=== PATIENT | female | born 1980 | race Caucasian/White ===

== ENCOUNTER 2016-03-18 17:39 | Emergency (ER) | payer MEDICAID | END 2016-03-18 19:02 | disposition home or self-care (01) | DX: J06.9 Acute upper respiratory infection, unspecified (principal); B97.89 Other viral agents as the cause of diseases classified elsewhere ==

== ENCOUNTER 2016-03-28 17:16 | Emergency (ER) | payer MEDICAID | END 2016-03-28 20:23 | disposition home or self-care (01) | DX: S83.91XA Sprain of unspecified site of right knee, initial encounter (principal); X50.9XXA Other and unspecified overexertion or strenuous movements or postures, initial encounter; Y93.F9 Activity, other caregiving; R03.0 Elevated blood-pressure reading, without diagnosis of hypertension ==

== ENCOUNTER 2016-04-07 16:15 | Emergency (ER) | payer MEDICAID | END 2016-04-07 17:49 | disposition home or self-care (01) | DX: N93.8 Other specified abnormal uterine and vaginal bleeding (principal); N94.6 Dysmenorrhea, unspecified; J45.909 Unspecified asthma, uncomplicated ==

== ENCOUNTER 2016-05-09 19:06 | Emergency (ER) | payer MEDICAID | END 2016-05-09 22:18 | disposition home or self-care (01) | DX: M25.561 Pain in right knee (principal); W10.9XXA Fall (on) (from) unspecified stairs and steps, initial encounter; R03.0 Elevated blood-pressure reading, without diagnosis of hypertension ==

== ENCOUNTER 2016-07-16 21:49 | Emergency (ER) | payer OTHER, MEDICAID ==
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
[2016-07-16 23:13] VITALS: BP 138/86
== END 2016-07-16 23:29 | disposition home or self-care (01) ==
LOC: ED 21:49
DX: S50.812A Abrasion of left forearm, initial encounter (principal); S50.811A Abrasion of right forearm, initial encounter; W51.XXXA Accidental striking against or bumped into by another person, initial encounter; Y93.F9 Activity, other caregiving; Y92.009 Unspecified place in unspecified non-institutional (private) residence as the place of occurrence of the external cause; Y99.0 Civilian activity done for income or pay; J45.909 Unspecified asthma, uncomplicated
CPT/HCPCS: 1040M; 99282

== ENCOUNTER 2016-12-07 21:28 | Emergency (ER) | payer MEDICAID ==
[2016-12-07 21:40] VITALS: BP 132/94
== END 2016-12-07 22:45 | disposition left against medical advice (07) ==
LOC: ED 21:28
DX: Z53.21 Procedure and treatment not carried out due to patient leaving prior to being seen by health care provider (principal)

== ENCOUNTER 2017-03-02 09:47 | Emergency (ER) | payer OTHER, MEDICAID ==
[2017-03-02 09:53] VITALS: BP 134/88
[2017-03-02] MEDS ORDERED: TETANUS/DIPHTHERIA/PERTUSSIS 0.5 ML SYRINGE IM ONE (10:34)
[2017-03-02] MEDS ORDERED: AMOX/CLAV 875 MG/125 MG TABLET PO STA (10:38)
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
== END 2017-03-02 10:54 | disposition home or self-care (01) ==
LOC: ED 09:47
DX: S30.811A Abrasion of abdominal wall, initial encounter (principal); S40.021A Contusion of right upper arm, initial encounter; W50.3XXA Accidental bite by another person, initial encounter; Y92.219 Unspecified school as the place of occurrence of the external cause; Y99.0 Civilian activity done for income or pay; Z23 Encounter for immunization
CPT/HCPCS: 1040M; 90471; 90715; 99283; A9270

== ENCOUNTER 2017-03-02 16:06 | Outpatient (CLI) | payer MEDICAID | END 2017-03-02 16:07 | disposition EMS.NT | LOC: EMS 16:06 | PROVIDERS: ATTEND Surgery | DX: M25.512 Pain in left shoulder (principal); V73.6XXA Passenger on bus injured in collision with car, pick-up truck or van in traffic accident, initial encounter; Y92.414 Local residential or business street as the place of occurrence of the external cause ==

== ENCOUNTER 2017-03-02 17:48 | Emergency (ER) | payer OTHER, MEDICAID ==
[2017-03-02 18:13] VITALS: BP 145/106
[2017-03-02] MEDS ORDERED: KETOROLAC 60 MG/2 ML VIAL IM STA (19:35)
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
== END 2017-03-02 19:52 | disposition home or self-care (01) ==
LOC: ED 17:48
DX: S39.012A Strain of muscle, fascia and tendon of lower back, initial encounter (principal); V73.6XXA Passenger on bus injured in collision with car, pick-up truck or van in traffic accident, initial encounter
CPT/HCPCS: 1040M; 96372; 99283; 90471

== ENCOUNTER 2017-04-12 18:37 | Emergency (ER) | payer MEDICAID ==
--- NOTE | 2017-04-12 20:46 | ED Physician Documentation ---
PD HPI URI - Stated complaint Stated Complaint: COUGH/TIGHT CHEST - Chief complaint Chief Complaint: Resp - History obtained from History obtained from: Patient - History of Present Illness Timing duration: Days Timing details: Gradual onset, Still present Associated symptoms: Fever, Chills, Dry cough, Chest pain Improves by: Rest Worsened by: Activity Similar symptoms before: No diagnosis Review of Systems Constitutional: reports: Fever, Myalgias PD PAST MEDICAL HISTORY - Past Medical History Past Medical History: Yes Cardiovascular: None Respiratory: Asthma Neuro: None Endocrine/Autoimmune: None GI: None MAGISTRATE: Ovarian cysts : None HEENT: None Psych: None Musculoskeletal: None Derm: None - Past Surgical History Past Surgical History: Yes General: Colonoscopy Ortho: Arthroscopic surgery HEENT: Tonsil/Adenoidectomy - Present Medications Home Medications: Ambulatory Orders Medication Instructions Recorded Confirmed Triamcinolone Acetonide [Nasacort] 1 spray INH DAILY 04/21/14 03/02/17 Cetirizine [ZyrTEC] 10 mg PO DAILY 08/08/14 03/02/17 Albuterol 1 puffs PO DAILY 03/18/16 03/02/17 Amox/Clav 875/125 [Augmentin] 1 each PO Q12H #9 tablet 03/02/17 03/02/17 Cyclobenzaprine [Flexeril] 10 mg PO TID PRN #20 tablet 03/02/17 Meloxicam [Mobic] 7.5 mg PO BID PRN #20 tablet 03/02/17 Azithromycin [Zithromax] 250 mg PO DAILY #6 tablet 04/12/17 Benzonatate [Tessalon] 100 mg PO TID PRN #25 capsule 04/12/17 Dexamethasone [Decadron] 4 mg PO DAILY #5 tablet 04/12/17 guaiFENesin/CODEINE [Robitussin AC] 10 ml PO Q6H PRN #240 ml 04/12/17 - Allergies Allergies/Adverse Reactions: Allergies Allergy/AdvReac Type Severity Reaction Status Date / Time adhesive Allergy Rash Verified 12/24/16 21:13 Latex, Natural Rubber Allergy Rash Verified 12/24/16 21:13 - Social History Does the pt smoke?: No Smoking Status: Never smoker Does the pt drink ETOH?: No Does the pt have substance abuse?: No - Immunizations Immunizations are current?: Yes - POLST Patient has POLST: No PD ED PE NORMAL - General General: No acute distress - HEENT HEENT: Atraumatic, Ears normal, Pharynx benign - Neck Neck: No bony TTP, Thyroid normal - Cardiac Cardiac: RRR, No murmur - Respiratory Respiratory: Clear bilaterally Results - Vitals Vitals: Oxygen O2 Source Room air PD MEDICAL DECISION MAKING - ED course Complexity details: reviewed results, considered differential, d/w patient Departure - Departure Disposition: 01 Home, Self Care Clinical Impression: Bronchitis Dyspnea Qualifiers: Dyspnea type: shortness of breath Qualified Code(s): R06.02 - Shortness of breath Condition: Stable Record reviewed to determine appropriate education?: Yes Instructions: ED Upper Resp Infec Abx Tx Prescriptions: Azithromycin [Zithromax] 250 mg PO DAILY #6 tablet Benzonatate [Tessalon] 100 mg PO TID PRN #25 capsule PRN Reason: Cough Dexamethasone [Decadron] 4 mg PO DAILY #5 tablet guaiFENesin/CODEINE [Robitussin AC] 10 ml PO Q6H PRN #240 ml PRN Reason: Cough Comments: Your chest x-ray is clear without any signs of pneumonia. I presume the chest tightness and pain are from inflammation and some muscular pain likely from coughing and breathing harder. Use your albuterol inhaler at home 2 puffs 4 times a day for the next week. Given the duration and character of the cough, I think there could be some bacterial component. Zithromax antibiotic as directed for 5 more days. Decadron steroid anti-inflammatory for 5 more days. For the cough use Tessalon and you could also use Robitussin with codeine for both cough and pain. Recheck if not improving over the next several days. Forms: Activity restrictions Discharge Date/Time: 04/12/17 22:44
[2017-04-12] MEDS ORDERED: ALBUTEROL NEB 2.5 MG/3 ML INH STA (21:04)
[2017-04-12] MEDS ORDERED: DEXAMETHASONE 10 MG/ML VIAL PO STA (21:05)
[2017-04-12] MEDS ORDERED: BENZONATATE 100 MG CAPSULE PO STA (21:05)
--- NOTE | 2017-04-12 22:15 | XRAY Report ---
EXAM: CHEST RADIOGRAPHY EXAM DATE: 04/12/2017 09:53 PM. CLINICAL HISTORY: Cough and wheezing for 1-2 weeks. COMPARISON: 11/26/2011. TECHNIQUE: 2 views. FINDINGS: Lungs/Pleura: No focal opacities evident. No pleural effusion. No pneumothorax. Normal volumes. Mediastinum: Heart and mediastinal contours are unremarkable. Other: None. IMPRESSION: Stable negative 2-view chest radiography. [facility] Referring Provider Line: [phone] SITE ID: [id number]
[2017-04-12] MEDS ORDERED: AZITHROMYCIN 250 MG TABLET PO STA (22:26)
[2017-04-12] MEDS ORDERED: HYDROcod/ACET 5/325 Prepack 6 PO STA (22:26)
[2017-04-12 22:44] VITALS: BP 130/76
== END 2017-04-12 22:44 | disposition home or self-care (01) ==
LOC: ED 18:37
DX: J40 Bronchitis, not specified as acute or chronic (principal)
CPT/HCPCS: 71046; 94640; 94664; 99283; A9270; J7613

== ENCOUNTER 2017-05-11 08:00 | Outpatient (CLI) | payer MEDICAID ==
[2017-05-11 19:01] LABS: BASOPHILS # (AUTO) 0.1 10^3/uL (0.0-0.1); BASOPHILS % (AUTO) 0.7 %; EOSINOPHILS # (AUTO) 0.3 10^3/uL (0.0-0.7); EOSINOPHILS % (AUTO) 3.5 %; HGB - HEMOGLOBIN 14.1 g/dL (12.0-16.0); LYMPHOCYTES # (AUTO) 2.7 10^3/uL (1.5-3.5); LYMPHOCYTES % (AUTO) 30.9 %; MEAN CORPUSCULAR HEMOGLOBIN 29.7 pg (27.0-31.0); MEAN CORPUSCULAR HGB CONC 33.3 g/dL (32.0-36.0); MEAN CORPUSCULAR VOLUME 89.1 fL (81.0-99.0); MEAN PLATELET VOLUME 7.1 fL (7.9-10.8); MONOCYTES # (AUTO) 0.5 10^3/uL (0.0-1.0); NEUTROPHILS # (AUTO) 5.2 10^3/uL (1.5-6.6); NEUTROPHILS % (AUTO) 58.9 %; PLT - PLATELET COUNT 433 10^3/uL (130-450); RED BLOOD COUNT 4.74 10^6/uL (4.20-5.40); RED CELL DISTRIBUTION WIDTH 12.6 % (12.0-15.0); WHITE BLOOD COUNT 8.7 x10^3/uL (4.8-10.8)
[2017-05-11 19:30] LABS: ALBUMIN 4.3 g/dL (3.2-5.5); ALBUMIN/GLOBULIN RATIO 1.5 (1.0-2.2); ALKALINE PHOSPHATASE 75 IU/L (42-121); ALT ALANINE AMINOTRANSFERASE 36 IU/L (10-60); AST ASPARTATE AMINOTRANSFERASE 28 IU/L (10-42); BILIRUBIN,TOTAL 1.1 mg/dL (0.2-1.0); BUN - BLOOD UREA NITROGEN 8 mg/dL (6-20); CALCIUM 8.9 mg/dL (8.5-10.3); CARBON DIOXIDE - CO2 24 mmol/L (21-32); CHLORIDE 109 mmol/L (101-111); CREATININE 0.8 mg/dL (0.4-1.0); GFR - MDRD 82 (>89); GLUCOSE 95 mg/dL (70-100); SODIUM 140 mmol/L (135-145); TOTAL PROTEIN 7.2 g/dL (6.7-8.2)
[2017-05-11 19:32] LABS: CRP - C-REACTIVE PROTEIN < 1.0 mg/dL (0-1.0)
== END 2017-05-11 08:01 | disposition home or self-care (01) ==
LOC: LAB.N 08:00
PROVIDERS: ATTEND Nurse Practitioner
DX: R07.9 Chest pain, unspecified (principal); R06.00 Dyspnea, unspecified
CPT/HCPCS: 36415; 80053; 85025; 85379; 85651; 86140

== ENCOUNTER 2017-05-11 13:30 | Outpatient (CLI) | payer MEDICAID | END 2017-05-11 13:45 | disposition home or self-care (01) | LOC: RT.N 13:30 | PROVIDERS: ATTEND Nurse Practitioner | DX: R07.9 Chest pain, unspecified (principal); R06.00 Dyspnea, unspecified | CPT/HCPCS: 93005 ==

== ENCOUNTER 2017-05-11 15:05 | Outpatient (CLI) | payer MEDICAID ==
--- NOTE | 2017-05-12 09:33 | XRAY Report ---
TWO VIEW CHEST: 05/11/2017 CLINICAL INDICATION: Chest pain. COMPARISON: 04/12/2017. FINDINGS: Frontal and lateral views of the chest demonstrate a normal cardiac silhouette. The lungs are clear. No effusion or pneumothorax is present. IMPRESSION: NORMAL CHEST. TD: 05/12/2017 09:32
== END 2017-05-11 15:06 | disposition home or self-care (01) ==
LOC: DI.N 15:05
PROVIDERS: ATTEND Nurse Practitioner
DX: R07.9 Chest pain, unspecified (principal); R06.00 Dyspnea, unspecified
CPT/HCPCS: 36415; 71046; 80053; 85025; 85379; 85651; 86140

== ENCOUNTER 2017-06-07 12:15 | Emergency (ER) | payer OTHER, MEDICAID ==
[2017-06-07 12:39] VITALS: BP 130/77
--- NOTE | 2017-06-07 13:21 | ED Physician Documentation ---
PD HPI LOWER EXT INJURY - Stated complaint Stated Complaint: R ANKLE INJ - Chief complaint Chief Complaint: Ext Problem - History obtained from History obtained from: Patient - History of Present Illness PD HPI LOW EXT INJURY LOCATION: Other (She tripped on something while working today around 11 AM and inverted her right ankle. She is unable to walk or bear weight but declines pain medication. 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: Ovarian cysts : None HEENT: None Psych: None Musculoskeletal: None Derm: None - Past Surgical History Past Surgical History: Yes General: Colonoscopy Ortho: Arthroscopic surgery HEENT: Tonsil/Adenoidectomy - Present Medications Home Medications: Ambulatory Orders Medication Instructions Recorded Confirmed Cetirizine [ZyrTEC] 10 mg PO DAILY 08/08/14 06/07/17 Albuterol 1 puffs PO DAILY 03/18/16 06/07/17 - Allergies Allergies/Adverse Reactions: Allergies Allergy/AdvReac Type Severity Reaction Status Date / Time adhesive Allergy Rash Verified 06/07/17 12:39 Latex, Natural Rubber Allergy Rash Verified 06/07/17 12:39 - Social History Does the pt smoke?: No Smoking Status: Never smoker Does the pt drink ETOH?: No Does the pt have substance abuse?: No - Immunizations Immunizations are current?: Yes - POLST Patient has POLST: No PD ED PE NORMAL - Vitals Vital signs reviewed: Yes - General General: Alert and oriented X 3, No acute distress - Extremities Extremities: Other (No significant proximal fibular tenderness on the right, she is tenderness over the lateral malleolus and not the medial malleolus. No ATFL or foot tenderness. No mortise tenderness or abnormal Achilles function.) - Neuro Neuro: Alert and oriented X 3, Normal speech Results - Vitals Vitals: Vital Signs - 24 hr 06/07/17 12:35 Temperature 36.4 C L Heart Rate 71 Respiratory 20 Rate Blood Pressure 130/77 O2 Saturation 98 Oxygen O2 Source Room air - Rads (name of study) R ankle 3v Radiology: EMP read contemporaneously (normal) Departure - Departure Disposition: Home, Self Care Clinical Impression: Right ankle sprain Qualifiers: Encounter type: initial encounter Involved ligament of ankle: unspecified ligament Qualified Code(s): S93.401A - Sprain of unspecified ligament of right ankle, initial encounter Condition: Good Record reviewed to determine appropriate education?: Yes Instructions: ED Sprain Ankle W X Ray Comments: Ibuprofen as needed for pain. Recheck with your doctor in 1 week if not better. Forms: Activity restrictions
--- NOTE | 2017-06-07 13:33 | XRAY Report ---
EXAM: RIGHT ANKLE RADIOGRAPHY EXAM DATE: 06/07/2017 01:18 PM. CLINICAL HISTORY: Twisting injury, pain. COMPARISON: None. TECHNIQUE: 3 views. FINDINGS: Bones: Normal. No fractures or bone lesions. Joints: Normal. No effusion. No subluxations. The ankle mortise is normally aligned. Soft Tissues: There is lateral ankle soft tissue swelling. IMPRESSION: No acute fracture or subluxation. [facility] Referring Provider Line: [phone] SITE ID: [id number]
--- NOTE | 2017-06-07 13:33 | XRAY Preliminary Report ---
Exam: XR ANKLE 3 VIEW RT IMPRESSION: No acute fracture or subluxation. [facility] SITE ID: [id number]
== END 2017-06-07 13:54 | disposition home or self-care (01) ==
LOC: ED 12:15
DX: S93.401A Sprain of unspecified ligament of right ankle, initial encounter (principal); W01.0XXA Fall on same level from slipping, tripping and stumbling without subsequent striking against object, initial encounter; Y99.0 Civilian activity done for income or pay; J45.909 Unspecified asthma, uncomplicated
CPT/HCPCS: 99283

== ENCOUNTER 2017-07-18 07:25 | Emergency (ER) | payer MEDICAID ==
[2017-07-18 07:35] VITALS: BP 135/79
[2017-07-18] MEDS ORDERED: ERYTHROMYCIN OPHTH OINT 1 GM TUBE LEFTEYE STA (08:08)
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
== END 2017-07-18 08:18 | disposition home or self-care (01) ==
LOC: ED 07:25
DX: S05.8X2A Other injuries of left eye and orbit, initial encounter (principal); X58.XXXA Exposure to other specified factors, initial encounter; J45.909 Unspecified asthma, uncomplicated
CPT/HCPCS: 99282; 99283; J3490

== ENCOUNTER 2017-11-10 09:29 | Emergency (ER) | payer MEDICAID ==
[2017-11-10] MEDS ORDERED: AMOX/CLAV 875 MG/125 MG TABLET PO STA (11:47)
[2017-11-10] MEDS ORDERED: DEXAMETHASONE 10 MG/ML VIAL PO STA (11:47)
--- NOTE | 2017-11-10 12:05 | ED Physician Documentation ---
History of Present Illness - Stated complaint Stated Complaint: LT SIDE SWOLLEN NECK - Chief complaint Chief Complaint: Heent - Additonal information Additional information: hx from pt 36 y/o f denies preg earring embedded, now better but subsequently developed l sided neck swelling and pain no fever no dental pain normally healthy Review of Systems Constitutional: denies: Fever Ears: reports: Ear pain Throat: denies: Dental pain / toothache, Sore throat Endocrine: denies: Easy bruising / bleeding Immunocompromised: denies: Immunocompromised PD PAST MEDICAL HISTORY - Past Medical History Past Medical History: Yes Cardiovascular: None Respiratory: Asthma Endocrine/Autoimmune: None GI: None 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 : None HEENT: None Psych: None Musculoskeletal: None Derm: None - Past Surgical History Past Surgical History: Yes General: Colonoscopy Ortho: Arthroscopic surgery HEENT: Tonsil/Adenoidectomy - Present Medications Home Medications: Ambulatory Orders Medication Instructions Recorded Confirmed Cetirizine [ZyrTEC] 10 mg PO DAILY 08/08/14 06/07/17 Albuterol 1 puffs PO DAILY 03/18/16 11/10/17 Amox/Clav 875/125 [Augmentin] 1 each PO Q12H #13 tablet 11/10/17 - Allergies Allergies/Adverse Reactions: Allergies Allergy/AdvReac Type Severity Reaction Status Date / Time adhesive Allergy Rash Verified 11/10/17 10:09 Latex, Natural Rubber Allergy Rash Verified 11/10/17 10:09 - Social History Does the pt smoke?: No Smoking Status: Never smoker Does the pt drink ETOH?: No Does the pt have substance abuse?: No - Immunizations Immunizations are current?: Yes - POLST Patient has POLST: No PD ED PE NORMAL - Vitals Vital signs reviewed: Yes - Neck Neck: Other (left ant cerv adenopathy from the ear to angle of mandible) - Cardiac Cardiac: RRR - Respiratory Respiratory: No respiratory distress - Neuro Neuro: Alert and oriented X 3 Results - Vitals Vitals: Vital Signs - 24 hr 11/10/17 10:03 Temperature 36.6 C Heart Rate 82 Respiratory 14 Rate Blood Pressure 139/91 H O2 Saturation 97 Oxygen O2 Source Room air PD MEDICAL DECISION MAKING - Sepsis Event Vital Signs: Vital Signs - 24 hr 11/10/17 10:03 Temperature 36.6 C Heart Rate 82 Respiratory 14 Rate Blood Pressure 139/91 H O2 Saturation 97 Oxygen O2 Source Room air Departure - Departure Disposition: Home, Self Care Clinical Impression: Left cervical lymphadenopathy Condition: Good Instructions: ED Cervical Adenitis Abx Tx Prescriptions: Amox/Clav 875/125 [Augmentin] 1 each PO Q12H #13 tablet Comments: Follow up with your PMD for a recheck if not better by Wednesday Return sooner if worse
[2017-11-10 12:18] VITALS: BP 137/89
== END 2017-11-10 12:18 | disposition home or self-care (01) ==
LOC: ED 09:29
DX: R59.0 Localized enlarged lymph nodes (principal)
CPT/HCPCS: 99283; A9270

== ENCOUNTER 2017-11-12 17:31 | Emergency (ER) | payer MEDICAID ==
[2017-11-12 19:51] LABS: BILIRUBIN,URINE NEGATIVE (NEGATIVE); GLUCOSE, URINE (UA) NEGATIVE (NEGATIVE); KETONES,URINE (UA) NEGATIVE (NEGATIVE); LEUKOCYTE ESTERASE, URINE NEGATIVE (NEGATIVE); NITRITE,URINE NEGATIVE (NEGATIVE); OCCULT BLOOD,URINE LARGE (NEGATIVE); PH,URINE 5.5 PH (5.0-7.5); PROTEIN,URINE TRACE mg/dL (NEGATIVE); UROBILINOGEN,URINE 0.2 (NORMAL) E.U./dL (NORMAL)
[2017-11-12 19:55] LABS: CLARITY,URINE HAZY (CLEAR)
[2017-11-12 20:03] LABS: BACTERIA,URINE None Seen /HPF (None Seen); CRYSTALS,URINE >50 Calcium Oxalate /LPF; SQUAMOUS EPITHELIAL CELL,UR MOD Squamous (<= Few)
[2017-11-12] MEDS ORDERED: SODIUM CHLORIDE 0.9% 1,000 ML IV ONE (20:18)
[2017-11-12] MEDS ORDERED: KETOROLAC 60 MG/2 ML VIAL IVP STA (20:18)
--- NOTE | 2017-11-12 20:28 | ED Physician Documentation ---
History of Present Illness - Stated complaint Stated Complaint: NEAR SYNCOPE - Chief complaint Chief Complaint: General - History obtained from History obtained from: Patient, Friend - History of Present Illness Timing: How many weeks ago (1) Pain level max: 4 Pain level now: 3 Improved by: rest Worsened by: exertion - Additonal information Additional information: Patient is a 36-year-old female who presents to the emergency department with generalized body aches for the past several days. Started after receiving her MMR vaccination as well as her flu vaccination 1 week ago. States she had left- sided neck swelling for which she was seen here a few days ago and placed on steroids as well as amoxicillin. Today she is feeling tired and weak. States she felt lightheaded and dizzy earlier but this is now improving. Did not eat and drink well today. She is not vomiting. No possibility of . Denies any rhinorrhea, congestion Review of Systems Ten Systems: 10 systems reviewed and negative Constitutional: reports: Fever (subjective). 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 : None HEENT: None Psych: None Musculoskeletal: None Derm: None - Past Surgical History Past Surgical History: Yes General: Colonoscopy Ortho: Arthroscopic surgery HEENT: Tonsil/Adenoidectomy - Present Medications Home Medications: Ambulatory Orders Medication Instructions Recorded Confirmed Cetirizine [ZyrTEC] 10 mg PO DAILY 08/08/14 06/07/17 Albuterol 1 puffs PO DAILY 03/18/16 11/10/17 Amox/Clav 875/125 [Augmentin] 1 each PO Q12H #13 tablet 11/10/17 - Allergies Allergies/Adverse Reactions: Allergies Allergy/AdvReac Type Severity Reaction Status Date / Time adhesive Allergy Rash Verified 11/10/17 10:09 Latex, Natural Rubber Allergy Rash Verified 11/12/17 17:42 - Social History Does the pt smoke?: No Smoking Status: Never smoker Does the pt drink ETOH?: No Does the pt have substance abuse?: No - Immunizations Immunizations are current?: Yes - POLST Patient has POLST: No PD ED PE NORMAL - Vitals Vital signs reviewed: Yes - General General: Alert and oriented X 3, No acute distress, Well developed/nourished - HEENT HEENT: PERRL, Ears normal, Moist mucous membranes, Pharynx benign - Neck Neck: Supple, no meningeal sign, Other (mild cervical LAD) - Cardiac Cardiac: RRR, Strong equal pulses - Respiratory Respiratory: No respiratory distress, Clear bilaterally - Abdomen Abdomen: Soft, Non tender, Non distended - Derm Derm: Warm and dry - Neuro Neuro: Alert and oriented X 3 - Psych Psych: Normal mood, Normal affect Results - Vitals Vitals: Vital Signs - 24 hr 11/12/17 11/12/17 11/12/17 17:40 19:36 21:28 Temperature 36.1 C L Heart Rate 81 68 Respiratory 20 16 16 Rate Blood Pressure 144/76 H 141/89 H O2 Saturation 96 99 Oxygen O2 Source Room air - Labs Labs: Laboratory Tests 11/12/17 11/12/17 11/12/17 19:40 20:40 20:40 WBC 12.4 H RBC 4.64 Hgb 13.9 Hct 41.8 MCV 90.0 MCH 30.0 MCHC 33.3 RDW 12.8 Plt Count 420 MPV 6.9 L Neut # (Auto) 7.5 H Lymph # (Auto) 3.5 [place] # (Auto) 0.7 Eos # (Auto) 0.5 Baso # (Auto) 0.1 Absolute Nucleated RBC 0.00 Nucleated RBC % 0.0 Sodium 137 Potassium 3.5 Chloride 104 Carbon Dioxide 27 Anion Gap 6.0 BUN 12 Creatinine 0.8 Estimated GFR (MDRD) 82 L Glucose 95 Calcium 8.8 Total Bilirubin 0.8 AST 33 ALT 40 Alkaline Phosphatase 72 Total Protein 7.3 Albumin 4.1 Globulin 3.2 Albumin/Globulin Ratio 1.3 Lipase 45 Urine Color YELLOW Urine Clarity HAZY Urine pH 5.5 Ur Specific [place] >=1.030 H Urine Protein TRACE Urine Glucose (UA) NEGATIVE Urine Ketones NEGATIVE Urine Occult Blood LARGE H Urine Nitrite NEGATIVE Urine Bilirubin NEGATIVE Urine Urobilinogen 0.2 (NORMAL) Ur Leukocyte Esterase NEGATIVE Urine RBC 11-25 H Urine WBC 0-3 Ur Squamous Epith Cells MOD Squamous H Urine Crystals >50 Calcium Oxalate Urine Bacteria None Seen Ur Microscopic Review INDICATED Urine Culture Comments NOT INDICATED PD MEDICAL DECISION MAKING - ED course Complexity details: reviewed old records, reviewed results, re-evaluated patient, considered differential, d/w patient ED course: Patient is a 36-year-old female with what appears to be a viral syndrome versus immunization reaction. Afebrile. Feels better after IV fluids. No significant electrolyte abnormalities. We will have her continue the Augmentin that she was previously placed on. We will have her follow-up with her doctor for further evaluation and care. She is very well-appearing, nontoxic. Patient counseled regarding signs and symptoms for which I believe and urgent re- evaluation would be necessary. Patient with good understanding of and agreement to plan and is comfortable going home at this time This document was made in part using voice recognition software. While efforts are made to proofread this document, sound alike and grammatical errors may occur. - Sepsis Event Vital Signs: Vital Signs - 24 hr 11/12/17 11/12/17 11/12/17 17:40 19:36 21:28 Temperature 36.1 C L Heart Rate 81 68 Respiratory 20 16 16 Rate Blood Pressure 144/76 H 141/89 H O2 Saturation 96 99 Oxygen O2 Source Room air Departure - Departure Disposition: 01 Home, Self Care Clinical Impression: Viral syndrome Condition: Good Instructions: ED Viral Syndrome Follow-Up: Margarette Cruz ARNP [Primary Care Provider] - Within 1 week (if not better) Comments: Drink plenty of fluids and rest. Return if you worsen. Discharge Date/Time: 11/12/17 21:35
[2017-11-12 20:49] LABS: BASOPHILS # (AUTO) 0.1 10^3/uL (0.0-0.1); BASOPHILS % (AUTO) 0.9 %; EOSINOPHILS # (AUTO) 0.5 10^3/uL (0.0-0.7); HGB - HEMOGLOBIN 13.9 g/dL (12.0-16.0); LYMPHOCYTES # (AUTO) 3.5 10^3/uL (1.5-3.5); LYMPHOCYTES % (AUTO) 28.5 %; MEAN CORPUSCULAR HGB CONC 33.3 g/dL (32.0-36.0); MEAN PLATELET VOLUME 6.9 fL (7.9-10.8); MONOCYTES # (AUTO) 0.7 10^3/uL (0.0-1.0); MONOCYTES % (AUTO) 5.9 %; NEUTROPHILS # (AUTO) 7.5 10^3/uL (1.5-6.6); NEUTROPHILS % (AUTO) 60.7 %; PLT - PLATELET COUNT 420 10^3/uL (130-450); RED BLOOD COUNT 4.64 10^6/uL (4.20-5.40); RED CELL DISTRIBUTION WIDTH 12.8 % (12.0-15.0); WHITE BLOOD COUNT 12.4 x10^3/uL (4.8-10.8)
[2017-11-12 21:06] LABS: ALBUMIN 4.1 g/dL (3.2-5.5); ALBUMIN/GLOBULIN RATIO 1.3 (1.0-2.2); BILIRUBIN,TOTAL 0.8 mg/dL (0.2-1.0); CALCIUM 8.8 mg/dL (8.5-10.3); CREATININE 0.8 mg/dL (0.4-1.0); TOTAL PROTEIN 7.3 g/dL (6.7-8.2)
[2017-11-12 21:29] VITALS: BP 141/89
== END 2017-11-12 21:35 | disposition home or self-care (01) ==
LOC: ED 17:31
DX: B34.9 Viral infection, unspecified (principal)
CPT/HCPCS: 36415; 80053; 81001; 81003; 83690; 85025; 87086; 96361; 96374; 99283

== ENCOUNTER 2018-01-04 09:31 | Outpatient (CLI) | payer MEDICAID ==
[2018-01-04 09:47] LABS: BASOPHILS # (AUTO) 0.1 10^3/uL (0.0-0.1); BASOPHILS % (AUTO) 0.8 %; EOSINOPHILS # (AUTO) 0.2 10^3/uL (0.0-0.7); EOSINOPHILS % (AUTO) 1.8 %; HGB - HEMOGLOBIN 13.1 g/dL (12.0-16.0); LYMPHOCYTES % (AUTO) 20.1 %; MEAN CORPUSCULAR HEMOGLOBIN 30.8 pg (27.0-31.0); MEAN CORPUSCULAR HGB CONC 34.9 g/dL (32.0-36.0); MEAN CORPUSCULAR VOLUME 88.3 fL (81.0-99.0); MONOCYTES # (AUTO) 0.4 10^3/uL (0.0-1.0); MONOCYTES % (AUTO) 4.4 %; NEUTROPHILS # (AUTO) 7.1 10^3/uL (1.5-6.6); NEUTROPHILS % (AUTO) 72.9 %; PLT - PLATELET COUNT 407 10^3/uL (130-450); RED BLOOD COUNT 4.23 10^6/uL (4.20-5.40); RED CELL DISTRIBUTION WIDTH 12.6 % (12.0-15.0); WHITE BLOOD COUNT 9.8 x10^3/uL (4.8-10.8)
[2018-01-04 10:01] LABS: ALBUMIN 3.9 g/dL (3.2-5.5); ALBUMIN/GLOBULIN RATIO 1.3 (1.0-2.2); BILIRUBIN,TOTAL 1.1 mg/dL (0.2-1.0); CALCIUM 8.7 mg/dL (8.5-10.3); CREATININE 0.7 mg/dL (0.4-1.0); TOTAL PROTEIN 6.9 g/dL (6.7-8.2)
[2018-01-04 11:03] LABS: THYROID STIMULATING HORMONE 1.96 uIU/mL (0.34-5.60)
[2018-01-04 11:30] LABS: FOLLICLE STIMULATING HORMONE 3.94 mIU/mL
[2018-01-04 11:31] LABS: LUTEINIZING HORMONE 2.68 mIU/mL
[2018-01-05 07:17] LABS: ESTRADIOL 17 pg/mL
[2018-01-07 10:30] LABS: DHEA SULFATE 116 mcg/dL (23-266)
== END 2018-01-04 09:32 | disposition home or self-care (01) ==
LOC: LAB 09:31
PROVIDERS: ATTEND Registered Nurse
DX: N93.9 Abnormal uterine and vaginal bleeding, unspecified (principal)
CPT/HCPCS: 36415; 80053; 81599; 82627; 82670; 83001; 83002; 84402; 84403; 84443; 85025

== ENCOUNTER 2018-01-12 20:27 | Outpatient (CLI) | payer MEDICAID ==
--- NOTE | 2018-01-13 11:10 | Ultrasound Report ---
Reason: ABNORMAL UTERINE AND VAGINAL BLEEDING UNSPECIFIED Procedure Date: 01/12/2018 Accession Number: [id number] / [id number] Procedure: US - Pelvic w/Transvaginal CPT Code: FULL RESULT: EXAM: PELVIC ULTRASOUND EXAM DATE: 01/12/2018 10:00 PM. CLINICAL HISTORY: Abnormal uterine and vaginal bleeding unspecified. COMPARISON: None. TECHNIQUE: Realtime transabdominal pelvic scan performed to identify the uterus and adnexa and as an overview of other pelvic structures, followed by transvaginal scan to provide greater detail of the uterus and adnexa, with static image documentation. FINDINGS: Uterus: 7.2 x 5.1 x 4.6 cm, volume 88 cc. Anteverted position. Normal overall size and echotexture. Masses: A submucosal fundal fibroid measuring 1.0 x 1.0 x 1.1 cm is identified. Endometrium: 5 mm. Normal. Cervix: Nabothian cyst, otherwise normal. Right Ovary: 2.8 x 1.6 x 1.9 cm, volume 4.4 cc. Normal echotexture and blood flow. Left Ovary: 3.1 x 1.8 x 2.2 cm, volume 6.4 cc. Normal echotexture and blood flow. Free Fluid: Trace amount of fluid within the cul-de-sac, felt to be within physiologic limits. Other: None. IMPRESSION: Fundal submucosal fibroid, possibly related to abnormal uterine bleeding. RADIA
== END 2018-01-12 20:28 | disposition home or self-care (01) ==
LOC: DI 20:27
PROVIDERS: ATTEND Registered Nurse
DX: D25.0 Submucous leiomyoma of uterus (principal); N93.9 Abnormal uterine and vaginal bleeding, unspecified
CPT/HCPCS: 76830; 76856

== ENCOUNTER 2018-07-02 17:34 | Emergency (ER) | payer MEDICAID ==
[2018-07-02 17:41] VITALS: BP 141/95
[2018-07-02] MEDS ORDERED: PHENAZOPYRIDINE 100 MG TABLET PO STA (18:12)
[2018-07-02] MEDS ORDERED: NITROFURANTOIN MACRO 100 MG CAPSULE PO STA (18:12)
--- NOTE | 2018-07-02 18:13 | ED Physician Documentation ---
PD HPI FEMALE - Stated complaint Stated Complaint: FEMALE - Chief complaint Chief Complaint: UTI - History obtained from History obtained from: Patient, Family - History of Present Illness Timing - onset: How many days ago (3) Timing - duration: Days (3) Timing - details: Gradual onset Pain level max: 4 Pain level max: 3 Associated symptoms: Back pain (low back pain), Dysuria, Urinary frequency. 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 : None HEENT: None Psych: None Musculoskeletal: None Derm: None - Past Surgical History Past Surgical History: Yes General: Colonoscopy Ortho: Arthroscopic surgery HEENT: Tonsil/Adenoidectomy - Present Medications Home Medications: Ambulatory Orders Medication Instructions Recorded Confirmed Albuterol 1 puffs PO DAILY 03/18/16 11/10/17 Cetirizine [ZyrTEC] 10 mg ORAL DAILY 07/02/18 07/02/18 Fluticasone Propionate [Flovent 50 mcg IH BID 07/02/18 07/02/18 Diskus] Fluticasone [Flonase] 2 sprays TOM BID 07/02/18 07/02/18 Lisinopril [Zestril] 5 mg ORAL DAILY 07/02/18 07/02/18 Nitrofurantoin Monohyd/M-Cryst 100 mg PO BID #10 capsule 07/02/18 [Macrobid 100 mg Capsule] Phenazopyridine HCl [Pyridium] 200 mg PO TID PRN #6 tablet 07/02/18 - Allergies Allergies/Adverse Reactions: Allergies Allergy/AdvReac Type Severity Reaction Status Date / Time adhesive Allergy Rash Verified 07/02/18 17:40 Latex, Natural Rubber Allergy Rash Verified 07/02/18 17:40 - Social History Does the pt smoke?: No Smoking Status: Never smoker Does the pt drink ETOH?: No Does the pt have substance abuse?: No - Immunizations Immunizations are current?: Yes - POLST Patient has POLST: No PD ED PE NORMAL - Vitals Vital signs reviewed: Yes - General General: Alert and oriented X 3, No acute distress - HEENT HEENT: Moist mucous membranes - Neck Neck: Supple, no meningeal sign - Cardiac Cardiac: RRR - Respiratory Respiratory: No respiratory distress, Clear bilaterally - Abdomen Abdomen: Soft, Non tender, Non distended - Back Back: No CVA TTP, No spinal TTP - Derm Derm: Warm and dry, No rash - Neuro Neuro: Alert and oriented X 3 - Psych Psych: Normal mood, Normal affect Results - Vitals Vitals: Vital Signs - 24 hr 07/02/18 17:37 Temperature 37.2 C Heart Rate 106 H Respiratory 14 Rate Blood Pressure 141/95 H O2 Saturation 97 Oxygen O2 Source Room air - Labs Labs: Microbiology 07/02/18 18:21 Urine Culture - Preliminary Urine,Clean Catch Escherichia Coli Laboratory Tests 07/02/18 18:21 Urine Color YELLOW Urine Clarity HAZY Urine pH 6.5 Ur Specific [place] 1.020 Urine Protein 30 H Urine Glucose (UA) NEGATIVE Urine Ketones NEGATIVE Urine Occult Blood LARGE H Urine Nitrite POSITIVE H Urine Bilirubin NEGATIVE Urine Urobilinogen 0.2 (NORMAL) Ur Leukocyte Esterase TRACE H Urine RBC 11-25 H Urine WBC 6-10 H Ur Squamous Epith Cells FEW Squamous Urine Bacteria Moderate H Ur Microscopic Review INDICATED Urine Culture Comments INDICATED Urine HCG, Qual NEGATIVE PD MEDICAL DECISION MAKING - ED course Complexity details: reviewed results, re-evaluated patient, considered diff erential, d/w patient ED course: 37-year-old female with a UTI. Will place on antibiotics. Will follow up with her doctor for further care. She is well-appearing, nontoxic. Afebrile. No pyelonephritis. Patient counseled regarding signs and symptoms for which I believe and urgent re-evaluation would be necessary. Patient with good understanding of and agreement to plan and is comfortable going home at this time This document was made in part using voice recognition software. While efforts are made to proofread this document, sound alike and grammatical errors may occur. Departure - Departure Disposition: 01 Home, Self Care Clinical Impression: Urinary tract infection Qualifiers: Urinary tract infection type: acute cystitis Hematuria presence: without hematuria Qualified Code(s): N30.00 - Acute cystitis without hematuria Condition: Good Instructions: ED UTI Cystitis Female Follow-Up: Attila Gibson PA-C [Primary Care Provider] - As Needed Prescriptions: Nitrofurantoin Monohyd/M-Cryst [Macrobid 100 mg Capsule] 100 mg PO BID #10 capsule Phenazopyridine HCl [Pyridium] 200 mg PO TID PRN #6 tablet PRN Reason: dysuria Comments: Return if you worsen. Take all antibiotics until gone. Discharge Date/Time: 07/02/18 18:26
[2018-07-02 18:30] LABS: BILIRUBIN,URINE NEGATIVE (NEGATIVE); GLUCOSE, URINE (UA) NEGATIVE (NEGATIVE); KETONES,URINE (UA) NEGATIVE (NEGATIVE); LEUKOCYTE ESTERASE, URINE TRACE (NEGATIVE); NITRITE,URINE POSITIVE (NEGATIVE); OCCULT BLOOD,URINE LARGE (NEGATIVE); PH,URINE 6.5 PH (5.0-7.5); PROTEIN,URINE 30 mg/dL (NEGATIVE); UROBILINOGEN,URINE 0.2 (NORMAL) E.U./dL (NORMAL)
[2018-07-02 18:34] LABS: CLARITY,URINE HAZY (CLEAR); HCG UR QUAL NEGATIVE
[2018-07-02 18:58] LABS: BACTERIA,URINE Moderate /HPF (None Seen); SQUAMOUS EPITHELIAL CELL,UR FEW Squamous (<= Few)
== END 2018-07-02 18:26 | disposition home or self-care (01) ==
LOC: ED 17:34
DX: N30.00 Acute cystitis without hematuria (principal); I10 Essential (primary) hypertension
CPT/HCPCS: 81001; 81025; 87086; 87181; 99283; A9270; 81003

== ENCOUNTER 2018-09-15 12:46 | Outpatient (CLI) | payer MEDICAID ==
--- NOTE | 2018-09-15 14:43 | XRAY Report ---
Reason: KNEE JOINT PAIN,RIGHT Procedure Date: 09/15/2018 Accession Number: [id number] / [id number] Procedure: XR - Knee 3 View RT CPT Code: FULL RESULT: EXAM: RIGHT KNEE RADIOGRAPHY EXAM DATE: 09/15/2018 01:10 PM. CLINICAL HISTORY: KNEE JOINT PAIN,RIGHT. COMPARISON: KNEE 3 VIEW RT 05/09/2016 9:05 PM. TECHNIQUE: 3 views. FINDINGS: Bones: No acute fracture or bony lesion. Mild degenerative spurring. Joints: Normal alignment. No significant joint space narrowing. No knee effusion. Soft Tissues: Normal. No soft tissue swelling. IMPRESSION: 1. No osseous abnormalities. RADIA
== END 2018-09-15 12:47 | disposition home or self-care (01) ==
LOC: DI 12:46
PROVIDERS: ATTEND Family Medicine
DX: M25.561 Pain in right knee (principal)

== ENCOUNTER 2018-11-29 09:44 | Outpatient (CLI) | payer MEDICAID ==
[2018-11-29 16:42] VITALS: BP 112/87
--- NOTE | 2018-11-29 16:42 | SLEEP CARE CONSULTATION ---
Information from patient questionnaire entered by Rajwinder Gavin. I have reviewed and concur with the information entered by Rajwinder Gavin. This document represents the service I personally performed and the decisions made by me, David Sanders MD, [facility]. History of Present Illness Reason for Visit: New patient Chief Complaint: reports: Unrefreshed sleep, Excessive daytime sleepiness, Fatigue Duration of Symptoms: 1.5 years Usual bedtime: 10pm Time it takes to fall asleep: a few hours Snores at night: Yes (sometimes) Observed to quit breathing while asleep: No Number of times waking at night: 3-4 times Reasons for waking at night: reports: Gasping for air, Other (nightmares) Toss, Turn, or Twitch while sleeping: Yes Recalls having dreams: Yes Usually gets out of bed at: 5:30-6:30 am Feels refreshed in the morning: No Morning headache: Yes Sleepy or fatigued during the day: Yes Ever fallen asleep while driving: Yes Takes day naps: Yes Dreams during day naps: Yes Prior sleep studies: No Additional HPI information: I had the pleasure of seeing Ms. Adam today regarding the possibility of her having a sleep disorder. As you know, she is a 38 year old lady who complains of waking up gasping for air, unrefreshed sleep, persistent fatigue, and excessive daytime sleepiness for the past 1 years. The patient tells me that she normally goes to bed around 10 pm, and it takes her approximately a few hours to fall asleep. She has not been told that she snores occasionally at night. She has never been observed to stop breathing in her sleep. However, she sleeps alone. She can recall waking up on the average of 3 - 4 times during the night. Most of the time she wakes up because of choking and having to use the bathroom. She has never awakened because of her own snoring. There is a lot of tossing and turning in her sleep. She has somniloquy (sleep talking) but not somnambulism (sleep walking). Generally she can recall having dreams. In the morning she usually gets up out of the bed around 5:30 6:30 a.m. not feeling refreshed nor rested. She usually does have a morning headache that lasts about an hour. During the day she complains of feeling sleepy and fatigued. Her score on Seneca Sleepiness Scale is 15 out of 24. She has fallen asleep while driving and has gone out of the christophe. She usually takes naps during the day. Upon falling asleep during the day she reports having dreams. She reports symptoms of restless leg syndrome. She reports having impaired concentration during the day. 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 Patient is Single and lives in [place]. Have you smoked in the past 12 months: No Alcohol use: No Caffeine use: Yes Caffeine amount and frequency: 2-3 per day Family History Family history of sleep disordered breathing: Yes Family Hx Sleep Apnea: Mother: Sleep apnea - Treated Allergies and Home Medications Known drug allergies: No Drug allergies reviewed: Yes Home medication list reviewed: Yes Allergy and home medication list: lisinopril Review of Systems Weight gain over past 5 years: 60 Cardiovascular: reports: high blood pressure, leg or foot swelling, have to sleep sitting up Respiratory: reports: shortness of breath, wheeze Gastrointestinal: reports: heartburn, nausea, abdominal pain Neurological: denies: headaches, seizure, head trauma, disorientation, speech dysfunction, gait or balance problems, fainting or unconsciousness, other Psychiatric: reports: anxiety, depression Ear/Nose/Throat: reports: nasal congestion, sinus problems, dry mouth/throat, hoarseness, tonsillectomy, wisdom teeth removed Endocrine: reports: sluggishness, unexplained weakness Musculoskeletal: reports: joint pain, neck pain, back pain Immunologic: reports: rash, itching, allergies to food or environment Physical Exam Vital signs obtained and entered by: Dr. Sanders Blood Pressure: 112/87 Heart Rate: 82 O2 Saturation: 97 Height: 5 ft 6 in Weight: 259 lb 9.6 oz Body Mass Index: 41.8 BMI Classification: Obesity Class 3 Neck circumference: 16.5 Mood/affect: normal HEENT: No craniofacial malformation Nostrils: patent to airflow Turbinates: normal Septum: midline Mouth and throat: narrow oropharynx Soft palate: long Hard palate: normal Uvula: normal Uvula visualization: 25% Mallampati Class III Tongue: normal in size Tonsils: absent bilaterally Chin and jaw: normal size and position Neck: normal w/o lymphadenopathy or thyromegaly Heart: regular rate and rhythm Lungs: clear bilaterally Abdomen: soft, non-tender Extremities: no edema or clubbing Neurologic: intact, no focal deficits Impression and Plan IMPRESSION: 1. Obstructive Sleep Apnea-Hypopnea Syndrome, as suggested by history of loud and irregular snoring, frequent awakenings during the night, nocturnal choking, unrefreshed sleep, cognitive impairment, and daytime hypersomnolence. Narrow oropharynx and obesity are common predisposing factors for obstructive sleep apnea-hypopnea syndrome. Untreated obstructive sleep apnea can also cause hypertension. Pathophysiology of sleep-disordered breathing was discussed. I recommend proceeding to polysomnography to confirm the diagnosis and to assess severity. If she has significant sleep disordered breathing, a manual CPAP titration study will also be performed to find the optimal treatment pressure. I informed the patient of what the sleep studies involve and after some discussion, she agreed to proceed. Plan: 1. Schedule polysomnography + manual CPAP titration study and return in 1 to 2 weeks after the study to discuss result and initiate therapy. 2. Avoid long distance driving or when feeling sleepy. 3. Avoid alcohol, sedative and muscle relaxant around bedtime. 4. Attempt to lose weight. I spent 100% of this 20 minute visit face to face with the patient with greater than 50% of this was spent time counseling the patient and coordination of care.
== END 2018-11-29 09:45 | disposition home or self-care (01) ==
LOC: SC 09:44
PROVIDERS: ATTEND Internal Medicine Pulmonary Disease
DX: G47.10 Hypersomnia, unspecified (principal); G47.8 Other sleep disorders; R06.83 Snoring; R41.89 Other symptoms and signs involving cognitive functions and awareness
CPT/HCPCS: 99203; 99212

== ENCOUNTER 2018-12-20 20:33 | Outpatient (CLI) | payer MEDICAID | END 2018-12-20 20:34 | disposition home or self-care (01) | LOC: SC 20:33 | PROVIDERS: ATTEND Internal Medicine Pulmonary Disease | DX: G47.10 Hypersomnia, unspecified (principal); R53.83 Other fatigue; E66.9 Obesity, unspecified; Z68.41 Body mass index [BMI] 40.0-44.9, adult; G47.8 Other sleep disorders | CPT/HCPCS: 95810 ==

== ENCOUNTER 2019-01-18 15:25 | Outpatient (CLI) | payer MEDICAID ==
[2019-01-18 16:13] VITALS: BP 116/72
--- NOTE | 2019-01-18 16:13 | SLEEP CARE CONSULTATION ---
Information from patient questionnaire entered by Rajwinder Gavin. I have reviewed and concur with the information entered by Rajwinder Gavin. This document represents the service I personally performed and the decisions made by me, Genet Schaefer, RN, MSN, [employer]. History of Present Illness Initial [place] Sleepiness Scale score: 15 Current [place] Sleepiness Scale score: 10 Additional HPI information: SHAKIR FROST returns for follow up of the recently performed polysomnography and informed of findings. I explained the pathophysiology behind obstructive sleep apnea. Patient does not have sleep apnea and was advised how weight gain could increase the risk of developing sleep apnea in the future. I strongly encouraged the patient to lose weight. Methods to lose weight are refraining from sugary drinks, and refined foods and concentrating on whole foods in reduced portions were discussed. Patient reflected she is aware of these guidelines. I also discussed how starting with small achievable goals assist getting to ultimate goal. Patient does not have significant sleep disordered breathing but what little apnea she has is in supine position so advised to try positional therapy to see if she is more rested. . Methods to achieve positional management therapy were discussed; such as, positioning with pillows, wearing a T-shirt with tennis balls sewn into the back, and Slumberbump belt. Patient unable to afford commercial products and will try positional therapy with pillow positioning. Since she has shoulder discomfort and wakes with tingling in her arms, she was advised of proper alignment of head and body to see if reduction of symptoms. Patient has light to moderate snoring. Snoring can be reduced by weight loss. Weight loss is best achieved with diet consult. Patient instructed to contact PCP for referral. Snoring can also be treated with an oral appliance from a dentist. Advised to check insurance coverage. In addition, an ENT evaluation can be do to see if other treatment is indicated. At this time the patient would like to reduce weight as her way to reduce snoring. Patient counseled not drink alcohol less than 4 hours before bedtime as it can increase snoring and apnea. Patient does not drink alcohol. Patient was cautioned about risks of drowsy driving until sleepiness symptoms resolve. Patient denies drowsy driving. Sleep Study - Polysomnography Polysomnography findings: The quality of the study is good. The patient had normal sleep efficiency. The sleep architecture was normal as well. Respiratory monitoring showed no significant sleep disordered breathing (AHI = 3.3) or hypoxia (ken oxygen saturation of 92%). The few respiratory events occurred only during supine sleep (supine AHI = 4.7; non-supine = 0.00). Snore was light in intensity. There was no significant periodic leg movement of sleep. Cardiac rhythm was normal sinus rhythm with occasional premature ventricular contractions and brief sinus tachycardia. No abnormal behavior (parasomnia) observed during the night. Allergies and Home Medications Known drug allergies: Yes (adhesive, latex, natural ) Home medication list reviewed: Yes (no changes ) Review of Systems Review of systems same as previous: Yes Physical Exam Blood Pressure: 116/72 Cuff size: long Heart Rate: 94 O2 Saturation: 97 Height: 5 ft 6 in Weight: 259 lb 9.6 oz Body Mass Index: 41.8 BMI Classification: Obesity Class 3 Impression and Plan 1. Snoring but no significant sleep disordered breathing. Patient advised that often weight loss will reduce snoring as well as apnea risk. An oral appliance can also be used for snoring. This would require a dental consultation. Patient cautioned not to use other online appliances as can cause bite issues. Patient is advised to check if insurance will cover and a list of accredited dentists was available if needed. An ENT consult can also be helpful to determine if any other treatment is an option. Patient would like to work on weight loss to reduce snoring. She is aware of weight loss guidelines. She can also discuss a diet consultation if needed to achieve weight loss goals with her PCP. 2. Fatigue that could be related to uncomfortable bed and possibly to minimal supine apnea or other medical condition. She states she slept much better than at home at sleep study and felt more rested. When asked about her bed, she states it is old and needs replaced but no funds for replacement now. Thus she is was advised of ideas to make current bed more comfortable such as an egg crate mattress addition which can be found at stores such as [employer]. I also advised that she try avoid sleeping supine with pillow positioning to see if sleep is more refreshed. Pillow positioning could also reduce her waking with her arms tingling. She is also advised to follow up with PCP for a referral for evaluation of arm symptoms that could be due to nerve impingement. She agreed with plan. . * Attempt to lose weight * positional therapy * Follow up with PCP for diet consultation and referral for further evaluation of tingling symptoms of arms when awakens. * The patient is cautioned about driving until sleepiness is completely resolved. * Return as needed. I spent 100% of this [20][30] minute visit face to face with the patient with greater than 50% of this was spent time counseling the patient and coordination of care.
== END 2019-01-18 15:26 | disposition home or self-care (01) ==
LOC: SC 15:25
PROVIDERS: ATTEND Nurse Practitioner Family
DX: R06.83 Snoring (principal); R53.83 Other fatigue; E66.9 Obesity, unspecified; Z68.41 Body mass index [BMI] 40.0-44.9, adult
CPT/HCPCS: 99212; 99214

== ENCOUNTER 2019-04-03 20:38 | Emergency (ER) | payer MEDICAID, OTHER ==
[2019-04-03] MEDS ORDERED: IPRATROPIUM/ALBUTEROL 3 ML NEB INH STA (21:33)
--- NOTE | 2019-04-03 21:42 | ED Physician Documentation ---
PD HPI DYSPNEA - Stated complaint Stated Complaint: ASTHMATIC SX - Chief complaint Chief Complaint: Resp - History obtained from History obtained from: Patient - History of Present Illness Timing - onset: How many days ago (2) Timing - details: Gradual onset, Waxing and waning Pain level now: 0 Improved by: Rest Worsened by: Exertion, Coughing Associated symptoms: Fever (subjective (did not take temperature at home but felt hot and had chills)), Cough, Wheezing. No: Hemoptysis, Chest pain / discomfort, Diaphoresis, Bilateral edema, Unilateral edema Similar symptoms before: Diagnosis (asthma) Recently seen: Not recently seen Review of Systems Constitutional: reports: Fever (subjective (see HPI)), Chills. denies: Sweats Cardiac: reports: Reviewed and negative Respiratory: reports: Dyspnea, Cough, Wheezing. 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: Ovarian cysts : None HEENT: None Psych: None Musculoskeletal: None Derm: None - Past Surgical History Past Surgical History: Yes General: Colonoscopy Ortho: Arthroscopic surgery HEENT: Tonsil/Adenoidectomy - Present Medications Home Medications: Ambulatory Orders Medication Instructions Recorded Confirmed Albuterol 1 puffs PO DAILY 03/18/16 11/10/17 Cetirizine [ZyrTEC] 10 mg ORAL DAILY 07/02/18 07/02/18 Fluticasone Propionate [Flovent 50 mcg IH BID 07/02/18 07/02/18 Diskus] Fluticasone [Flonase] 2 sprays TOM BID 07/02/18 07/02/18 Nitrofurantoin Monohyd/M-Cryst 100 mg PO BID #10 capsule 07/02/18 [Macrobid 100 mg Capsule] Phenazopyridine HCl [Pyridium] 200 mg PO TID PRN #6 tablet 07/02/18 lisinopriL [Zestril] 5 mg ORAL DAILY 07/02/18 07/02/18 predniSONE [Prednisone] 40 mg PO DAILY 3 Days #6 tablet 04/03/19 - Allergies Allergies/Adverse Reactions: Allergies Allergy/AdvReac Type Severity Reaction Status Date / Time adhesive Allergy Rash Verified 04/03/19 20:47 Latex, Natural Rubber Allergy Rash Verified 04/03/19 20:47 - Social History Does the pt smoke?: No Smoking Status: Never smoker Does the pt drink ETOH?: No Does the pt have substance abuse?: No - Immunizations Immunizations are current?: Yes - POLST Patient has POLST: No PD ED PE NORMAL - Vitals Vital signs reviewed: Yes - General General: Alert and oriented X 3, No acute distress, Well developed/nourished - HEENT HEENT: Moist mucous membranes - Neck Neck: Supple, no meningeal sign - Cardiac Cardiac: RRR, No murmur - Respiratory Respiratory: No respiratory distress, Other (intermittent rhonchi left upper lung field) Results - Vitals Vitals: Vital Signs - 24 hr 04/03/19 04/03/19 04/03/19 20:47 21:54 22:50 Temperature 36.8 C Heart Rate 99 107 H 95 Respiratory 16 16 18 Rate Blood Pressure 130/86 H 115/80 O2 Saturation 98 94 04/03/19 23:55 Temperature 36.8 C Heart Rate 100 Respiratory 16 Rate Blood Pressure 114/75 O2 Saturation 96 Oxygen O2 Source Room air - Rads (name of study) chest xray Radiology: Prelim report reviewed, See rad report PD MEDICAL DECISION MAKING - ED course Complexity details: reviewed results, re-evaluated patient, considered differential, d/w patient Departure - Departure Disposition: 01 Home, Self Care Clinical Impression: Bronchitis with bronchospasm Condition: Good Instructions: ED Bronchitis Asthmatic Follow-Up: Attila Gibson PA-C [Primary Care Provider] - Prescriptions: predniSONE [Prednisone] 40 mg PO DAILY 3 Days #6 tablet Forms: Activity restrictions Discharge Date/Time: 04/04/19 00:12
[2019-04-03] MEDS ORDERED: predniSONE 20 MG TABLET PO STA (22:05)
--- NOTE | 2019-04-03 23:24 | XRAY Report ---
Reason: cough, dyspnea Procedure Date: 04/03/2019 Accession Number: [id number] / [id number] Procedure: XR - Chest 2 View X-Ray CPT Code: 91107 Final Report FULL RESULT: EXAM: CHEST RADIOGRAPHY EXAM DATE: 04/03/2019 11:13 PM. CLINICAL HISTORY: Cough, dyspnea. COMPARISON: CHEST 2 VIEW 04/12/2017 9:06 PM. TECHNIQUE: 2 views. FINDINGS: Lungs/Pleura: No focal opacities evident. No pleural effusion. No pneumothorax. Normal volumes. Mediastinum: Heart and mediastinal contours are unremarkable. Other: None. IMPRESSION: Normal 2-view chest radiography. RADIA
[2019-04-03] MEDS ORDERED: ACETAMINOPHEN 325 MG TABLET PO STA (23:46)
[2019-04-03 23:56] VITALS: BP 114/75
== END 2019-04-04 00:12 | disposition home or self-care (01) ==
LOC: ED 20:38
DX: J40 Bronchitis, not specified as acute or chronic (principal); J98.01 Acute bronchospasm; I10 Essential (primary) hypertension
CPT/HCPCS: 71046; 94640; 99283; 99284; A9270; J7512

== ENCOUNTER 2019-04-08 12:10 | Emergency (ER) | payer MEDICAID ==
[2019-04-08] MEDS ORDERED: DEXAMETHASONE 10 MG/ML VIAL PO STA (15:07)
[2019-04-08] MEDS ORDERED: IPRATROPIUM/ALBUTEROL 3 ML NEB INH STA (15:07)
[2019-04-08] MEDS ORDERED: CHERRY SYRUP 10 ML UDC PO ONE (15:07)
--- NOTE | 2019-04-08 15:10 | ED Physician Documentation ---
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 Patient stated that she did get some better but continues to have a cough productive of foamy yellowish-white phlegm. She denies any ear pain she denies any sore throat. She does have some urinary symptoms. She also has some bad teeth in the left upper. Review of Systems Constitutional: reports: Fatigue. denies: Fever Eyes: denies: Decreased vision Ears: denies: Ear pain Nose: reports: Congestion. 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 : None HEENT: None Psych: None Musculoskeletal: None Derm: None - Past Surgical History Past Surgical History: Yes General: Colonoscopy Ortho: Arthroscopic surgery HEENT: Tonsil/Adenoidectomy - Present Medications Home Medications: Ambulatory Orders Medication Instructions Recorded Confirmed Albuterol 1 puffs PO DAILY 03/18/16 11/10/17 Cetirizine [ZyrTEC] 10 mg ORAL DAILY 07/02/18 07/02/18 Fluticasone Propionate [Flovent 50 mcg IH BID 07/02/18 07/02/18 Diskus] Fluticasone [Flonase] 2 sprays TOM BID 07/02/18 07/02/18 Nitrofurantoin Monohyd/M-Cryst 100 mg PO BID #10 capsule 07/02/18 [Macrobid 100 mg Capsule] Phenazopyridine HCl [Pyridium] 200 mg PO TID PRN #6 tablet 07/02/18 lisinopriL [Zestril] 5 mg ORAL DAILY 07/02/18 07/02/18 predniSONE [Prednisone] 40 mg PO DAILY 3 Days #6 tablet 04/03/19 Albuterol 2.5 mg INH Q4H PRN #30 neb 04/08/19 Amox/Clav 875/125 [Augmentin] 1 each PO Q12H #20 tablet 04/08/19 Nebulizer and Compressor [Corinne 1 each MC Q4H PRN #1 each 04/08/19 Choice Nebulizer] predniSONE [Prednisone] 40 mg PO DAILY #10 tablet 04/08/19 - Allergies Allergies/Adverse Reactions: Allergies Allergy/AdvReac Type Severity Reaction Status Date / Time adhesive Allergy Rash Verified 04/08/19 12:25 Latex, Natural Rubber Allergy Rash Verified 04/08/19 12:25 - Social History Does the pt smoke?: No Smoking Status: Never smoker Does the pt drink ETOH?: No Does the pt have substance abuse?: No - Immunizations Immunizations are current?: Yes - POLST Patient has POLST: No PD ED PE NORMAL - Vitals Vital signs reviewed: Yes (Hypertensive) - General General: No acute distress, Well developed/nourished - HEENT HEENT: Atraumatic, PERRL, EOMI, Ears normal, Other (There are 2 teeth in the left upper molar that are tender there is no fluctuance to the buccal gingival fold.) - Neck Neck: Supple, no meningeal sign, No bony TTP - Cardiac Cardiac: RRR, No murmur - Respiratory Respiratory: No respiratory distress, Other (Diminished breath sounds and scattered wheezes bilateral) - Abdomen Abdomen: Soft, Non tender - Back Back: No CVA TTP, No spinal TTP - Derm Derm: Normal color, Warm and dry, No rash - Extremities Extremities: No deformity, No edema - Neuro Neuro: Alert and oriented X 3, filing clerk 2-12 intact, No motor deficit, No sensory deficit, Normal speech Eye Opening: Spontaneous Motor: Obeys Commands Verbal: Oriented GCS Score: 15 - Psych Psych: Normal mood, Normal affect Results - Vitals Vitals: Vital Signs - 24 hr 04/08/19 04/08/19 12:25 15:24 Temperature 36.5 C Heart Rate 75 76 Respiratory 14 20 Rate Blood Pressure 149/89 H O2 Saturation 96 Oxygen O2 Source Room air - Labs Labs: Laboratory Tests 04/08/19 04/08/19 15:15 15:15 Urine Color YELLOW Urine Clarity CLEAR Urine pH 6.0 Ur Specific [place] 1.025 1.025 Urine Protein NEGATIVE Urine Glucose (UA) NEGATIVE Urine Ketones NEGATIVE Urine Occult Blood LARGE H Urine Nitrite NEGATIVE Urine Bilirubin NEGATIVE Urine Urobilinogen 0.2 (NORMAL) Ur Leukocyte Esterase NEGATIVE Urine RBC TNTC H Urine WBC 0-3 Ur Squamous Epith Cells RARE Squamous Urine Bacteria None Seen Ur Microscopic Review INDICATED Urine Culture Comments NOT INDICATED Urine HCG, Qual NEGATIVE PD MEDICAL DECISION MAKING - ED course Complexity details: reviewed old records, reviewed results, re-evaluated patient, considered differential, d/w patient ED course: 38-year-old female with a history of asthma has had cough and congestion worsening of her symptoms and despite being on the third day of prednisone she continues to have increasing dyspnea. She is treated with a duo neb and decadron and we will add an antibiotic into her regimine as failing management without. Departure - Departure Disposition: 01 Home, Self Care Clinical Impression: Bronchitis with bronchospasm Condition: Stable Instructions: ED Bronchitis Asthmatic Follow-Up: Attila Gibson PA-C [Primary Care Provider] - Prescriptions: Albuterol 2.5 mg INH Q4H PRN #30 neb PRN Reason: Wheezing Amox/Clav 875/125 [Augmentin] 1 each PO Q12H #20 tablet Nebulizer and Compressor [Corinne Choice Nebulizer] 1 each MC Q4H PRN #1 each PRN Reason: dyspena predniSONE [Prednisone] 40 mg PO DAILY #10 tablet
[2019-04-08 16:45] LABS: BILIRUBIN,URINE NEGATIVE (NEGATIVE); GLUCOSE, URINE (UA) NEGATIVE (NEGATIVE); KETONES,URINE (UA) NEGATIVE (NEGATIVE); LEUKOCYTE ESTERASE, URINE NEGATIVE (NEGATIVE); NITRITE,URINE NEGATIVE (NEGATIVE); OCCULT BLOOD,URINE LARGE (NEGATIVE); PROTEIN,URINE NEGATIVE (NEGATIVE); UROBILINOGEN,URINE 0.2 (NORMAL) E.U./dL (NORMAL)
[2019-04-08 16:47] LABS: CLARITY,URINE CLEAR (CLEAR); HCG UR QUAL NEGATIVE
[2019-04-08 16:48] LABS: BACTERIA,URINE None Seen /HPF (None Seen); RBC,URINE TNTC /HPF (0-5); SQUAMOUS EPITHELIAL CELL,UR RARE Squamous (<= Few)
[2019-04-08 17:29] VITALS: BP 134/85
== END 2019-04-08 17:36 | disposition home or self-care (01) ==
LOC: ED 12:10
DX: J45.909 Unspecified asthma, uncomplicated (principal); I10 Essential (primary) hypertension; Z79.51 Long term (current) use of inhaled steroids
CPT/HCPCS: 81001; 81025; 94640; 99283; 99284; A9270; 81003; 87086

== ENCOUNTER 2019-06-16 14:57 | Emergency (ER) | payer MEDICAID ==
[2019-06-16] MEDS ORDERED: ONDANSETRON 4 MG/2 ML VIAL IVP STA (15:30)
[2019-06-16] MEDS ORDERED: SODIUM CHLORIDE 0.9% 1,000 ML IV ONE (15:30)
[2019-06-16] MEDS ORDERED: KETOROLAC 30 MG/ML VIAL IVP STA (15:30)
--- NOTE | 2019-06-16 15:43 | ED Physician Documentation ---
PD HPI HEADACHE - Stated complaint Stated Complaint: VISION LOSS, HEADACHE, VOMITING - Chief complaint Chief Complaint: Neuro - History obtained from History obtained from: Patient - History of Present Illness Timing - onset: Yesterday Timing - onset during: Rest Timing - duration: Days (1) Timing - details: Gradual onset, Waxing and waning Pain level max: 8 Pain level now: 6 Location: Front, Right Quality: Throbbing, Aching. No: Thunderclap Associated symptoms: Nausea, Vomiting, Vision changes (States she had vision changes yesterday, vision is normal now). No: Fever, Stiff neck, Weakness, Numb ness, Syncope, Seizure Improved by: Rest, Dark room Worsened by: Light - Additional information Additional information: 38-year-old female with a history of migraine headaches. Presents with a headache since yesterday. She took Tylenol yesterday without relief. The headache has been waxing and waning. Worsened today. Came in for evaluation. Has not taken any medication today for this. Worse with light and sound, better with the dark room and rest. She is not , breast-feeding or trying to b ecome . Review of Systems Ten Systems: 10 systems reviewed and negative Constitutional: denies: Fever, Chills Eyes: denies: Decreased vision, Irritation Ears: denies: Ear pain Nose: denies: Rhinorrhea / runny nose, Congestion Throat: denies: Sore throat Cardiac: denies: Chest pain / pressure Respiratory: denies: Dyspnea, Cough GI: reports: Nausea, Vomiting : denies: Dysuria, Frequency, Hesitancy, Now EGA Skin: denies: Rash Musculoskeletal: denies: Neck pain, Back pain Neurologic: denies: Focal weakness, Numbness, Seizure, Confused, Altered mental status, Head injury PD PAST MEDICAL HISTORY - Past Medical History Cardiovascular: Hypertension Respiratory: Asthma Neuro: None Endocrine/Autoimmune: None GI: 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 : None HEENT: None Psych: None Musculoskeletal: None Derm: None - Past Surgical History Past Surgical History: Yes General: Colonoscopy Ortho: Arthroscopic surgery HEENT: Tonsil/Adenoidectomy - Present Medications Home Medications: Ambulatory Orders Medication Instructions Recorded Confirmed Albuterol 1 puffs PO DAILY 03/18/16 11/10/17 Cetirizine [ZyrTEC] 10 mg ORAL DAILY 07/02/18 07/02/18 Fluticasone Propionate [Flovent 50 mcg IH BID 07/02/18 07/02/18 Diskus] Fluticasone [Flonase] 2 sprays TOM BID 07/02/18 07/02/18 Nitrofurantoin Monohyd/M-Cryst 100 mg PO BID #10 capsule 07/02/18 [Macrobid 100 mg Capsule] Phenazopyridine HCl [Pyridium] 200 mg PO TID PRN #6 tablet 07/02/18 lisinopriL [Zestril] 5 mg ORAL DAILY 07/02/18 07/02/18 predniSONE [Prednisone] 40 mg PO DAILY 3 Days #6 tablet 04/03/19 Albuterol 2.5 mg INH Q4H PRN #30 neb 04/08/19 Amox/Clav 875/125 [Augmentin] 1 each PO Q12H #20 tablet 04/08/19 Nebulizer and Compressor [[place] 1 each MC Q4H PRN #1 each 04/08/19 Choice Nebulizer] predniSONE [Prednisone] 40 mg PO DAILY #10 tablet 04/08/19 Butalb/Acetaminophen/Caffeine 1 cap PO Q6H PRN #10 capsule 06/16/19 [Fioricet 50-300-40 mg Capsule] - Allergies Allergies/Adverse Reactions: Allergies Allergy/AdvReac Type Severity Reaction Status Date / Time adhesive Allergy Rash Verified 06/16/19 15:02 Latex, Natural Rubber Allergy Rash Verified 06/16/19 15:02 - Social History Does the pt smoke?: No Smoking Status: Never smoker Does the pt drink ETOH?: No Does the pt have substance abuse?: No - Immunizations Immunizations are current?: Yes - POLST Patient has POLST: No PD ED PE NORMAL - Vitals Vital signs reviewed: Yes - General General: Alert and oriented X 3, No acute distress, Well developed/nourished - HEENT HEENT: Atraumatic, PERRL, EOMI, Ears normal, Moist mucous membranes, Pharynx benign - Neck Neck: Supple, no meningeal sign, No bony TTP - Cardiac Cardiac: RRR, Strong equal pulses - Respiratory Respiratory: No respiratory distress, Clear bilaterally - Abdomen Abdomen: Soft, Non tender, Non distended - Derm Derm: Warm and dry, No rash - Extremities Extremities: No edema, No calf tenderness / cord - Neuro Neuro: Alert and oriented X 3, cardiac nurse practitioner 2-12 intact, No motor deficit, No sensory deficit, Normal speech, Other (Normal cerebellar tests) Eye Opening: Spontaneous Motor: Obeys Commands Verbal: Oriented GCS Score: 15 - Psych Psych: Normal mood, Normal affect Results - Vitals Vitals: Vital Signs - 24 hr 06/16/19 06/16/19 06/16/19 15:03 15:52 17:06 Temperature 37 C Heart Rate 90 73 79 Respiratory 17 16 12 Rate Blood Pressure 140/92 H 96/61 97/75 O2 Saturation 96 95 93 Oxygen O2 Source Room air - Labs Labs: Laboratory Tests 06/16/19 06/16/19 06/16/19 15:20 15:20 16:30 WBC 12.6 H RBC 4.72 Hgb 14.3 Hct 43.1 MCV 91.3 MCH 30.3 MCHC 33.2 RDW 12.2 Plt Count 444 MPV 9.2 Neut # (Auto) 9.5 H Lymph # (Auto) 2.2 Heard # (Auto) 0.5 Eos # (Auto) 0.2 Baso # (Auto) 0.1 Absolute Nucleated RBC 0.00 Nucleated RBC % 0.0 Sodium 137 Potassium 4.0 Chloride 105 Carbon Dioxide 23 Anion Gap 9.0 BUN 11 Creatinine 0.7 Estimated GFR (MDRD) 95 Glucose 109 H Calcium 9.0 Total Bilirubin 1.9 H AST 29 ALT 38 Alkaline Phosphatase 83 Total Protein 7.8 Albumin 4.4 Globulin 3.4 Albumin/Globulin Ratio 1.3 Lipase 33 Urine Color YELLOW Urine Clarity CLEAR Urine pH 5.0 Ur Specific [place] >=1.030 H Urine Protein NEGATIVE Urine Glucose (UA) NEGATIVE Urine Ketones 15 H Urine Occult Blood NEGATIVE Urine Nitrite NEGATIVE Urine Bilirubin NEGATIVE Urine Urobilinogen 0.2 (NORMAL) Ur Leukocyte Esterase NEGATIVE Ur Microscopic Review NOT INDICATED Urine Culture Comments NOT INDICATED Urine HCG, Qual NEGATIVE - Rads (name of study) Head CT Radiology: Prelim report reviewed, EMP read contemporaneously, See rad report (No acute intracranial abnormality) PD MEDICAL DECISION MAKING - ED course Complexity details: reviewed results, re-evaluated patient (Patient appears comfortable, lying in bed eyes open in bright lights texting on her cell phone at 1800.), considered differential (No subarachnoid hemorrhage, no aneurysm, no tumor, no mass, no encephalitis, no meningitis), d/w patient ED course: Patient with her usual migraine headache. Given Toradol and Zofran. Also given a dose of Imitrex. Patient improved, But still had some right-sided head pain, so head CT was performed. This shows no acute abnormalities. No fevers.. We will continue supportive care and have her follow-up with her doctor for further care. No evidence of meningitis, encephalitis, subarachnoid hemorrhage, tumor. Patient counseled regarding signs and symptoms for which I believe and urgent re-evaluation would be necessary. Patient with good understanding of and agreement to plan and is comfortable going home at this time This document was made in part using voice recognition software. While efforts are made to proofread this document, sound alike and grammatical errors may occur. Departure - Departure Disposition: 01 Home, Self Care Clinical Impression: Headache Qualifiers: Headache type: unspecified Headache chronicity pattern: acute headache Intractability: not intractable Qualified Code(s): R51 - Headache Condition: Good Instructions: ED Headache Migraine Follow-Up: Attila Gibson PA-C [Primary Care Provider] - Within 1 week Prescriptions: Butalb/Acetaminophen/Caffeine [Fioricet 50-300-40 mg Capsule] 1 cap PO Q6H PRN #10 capsule PRN Reason: headache Comments: Return if you worsen. Follow-up with your doctor for further care. Your testing is normal here today. Do not drive or operate heavy machinery while taking the Fioricet.
[2019-06-16] MEDS ORDERED: SUMAtriptan 6 MG/0.5 ML VIAL SUBQ STA (16:27)
[2019-06-16 17:34] LABS: BASOPHILS # (AUTO) 0.1 10^3/uL (0.0-0.1); BASOPHILS % (AUTO) 0.6 %; EOSINOPHILS # (AUTO) 0.2 10^3/uL (0.0-0.7); EOSINOPHILS % (AUTO) 1.8 %; HGB - HEMOGLOBIN 14.3 g/dL (12.0-16.0); LYMPHOCYTES # (AUTO) 2.2 10^3/uL (1.5-3.5); LYMPHOCYTES % (AUTO) 17.2 %; MEAN CORPUSCULAR HEMOGLOBIN 30.3 pg (27.0-31.0); MEAN CORPUSCULAR HGB CONC 33.2 g/dL (32.0-36.0); MEAN CORPUSCULAR VOLUME 91.3 fL (81.0-99.0); MEAN PLATELET VOLUME 9.2 fL (7.9-10.8); MONOCYTES # (AUTO) 0.5 10^3/uL (0.0-1.0); MONOCYTES % (AUTO) 4.3 %; NEUTROPHILS # (AUTO) 9.5 10^3/uL (1.5-6.6); NEUTROPHILS % (AUTO) 75.2 %; PLT - PLATELET COUNT 444 10^3/uL (130-450); RED BLOOD COUNT 4.72 10^6/uL (4.20-5.40); RED CELL DISTRIBUTION WIDTH 12.2 % (12.0-15.0); WHITE BLOOD COUNT 12.6 x10^3/uL (4.8-10.8)
[2019-06-16 17:43] LABS: BILIRUBIN,URINE NEGATIVE (NEGATIVE); GLUCOSE, URINE (UA) NEGATIVE (NEGATIVE); KETONES,URINE (UA) 15 mg/dL (NEGATIVE); LEUKOCYTE ESTERASE, URINE NEGATIVE (NEGATIVE); NITRITE,URINE NEGATIVE (NEGATIVE); OCCULT BLOOD,URINE NEGATIVE (NEGATIVE); PROTEIN,URINE NEGATIVE (NEGATIVE); UROBILINOGEN,URINE 0.2 (NORMAL) E.U./dL (NORMAL)
[2019-06-16 17:44] LABS: ALBUMIN 4.4 g/dL (3.2-5.5); ALBUMIN/GLOBULIN RATIO 1.3 (1.0-2.2); BILIRUBIN,TOTAL 1.9 mg/dL (0.2-1.0); CREATININE 0.7 mg/dL (0.4-1.0); TOTAL PROTEIN 7.8 g/dL (6.7-8.2)
[2019-06-16 17:50] LABS: CLARITY,URINE CLEAR (CLEAR); HCG UR QUAL NEGATIVE
--- NOTE | 2019-06-16 17:55 | CT Report ---
Reason: R sided headache Procedure Date: 06/16/2019 Accession Number: [id number] / [id number] Procedure: CT - HEAD WO CPT Code: Final Report FULL RESULT: EXAM: CT HEAD EXAM DATE: 06/16/2019 05:40 PM. CLINICAL HISTORY: R sided headache. COMPARISON: None. TECHNIQUE: Multiaxial CT images were obtained from the foramen magnum to the vertex. Reformats: Sagittal and coronal. IV contrast: None. In accordance with CT protocol optimization, one or more of the following dose reduction techniques were utilized for this exam: automated exposure control, adjustment of mA and/or KV based on patient size, or use of iterative reconstructive technique. FINDINGS: Parenchyma: No intraparenchymal hemorrhage. No evidence of mass, midline shift, or CT findings of acute infarction. Estevez-white differentiation is distinct. Extraaxial Spaces: Normal for age. No subdural or epidural collections identified. Ventricles: Normal in size and position. Sinuses and Orbits: Imaged paranasal sinuses, orbits, and mastoids show no significant abnormality. Bones: No evidence of fracture or calvarial defect. Other: None. IMPRESSION: No acute intracranial abnormality. [facility]
[2019-06-16 18:15] VITALS: BP 103/74
== END 2019-06-16 18:18 | disposition home or self-care (01) ==
LOC: ED 14:57
DX: G43.909 Migraine, unspecified, not intractable, without status migrainosus (principal); I10 Essential (primary) hypertension
CPT/HCPCS: 36415; 70450; 80053; 81001; 81003; 81025; 83690; 85025; 87086; 96361; 96374; 99284

== ENCOUNTER 2019-08-17 08:12 | Outpatient (CLI) | payer MEDICAID | END 2019-08-17 23:59 | disposition home or self-care (01) | LOC: LAB 08:12 | PROVIDERS: ATTEND Family Medicine | DX: J30.2 Other seasonal allergic rhinitis (principal); Z20.828 Contact with and (suspected) exposure to other viral communicable diseases | CPT/HCPCS: 81599 ==